=== PATIENT | female | born 1975 | race Caucasian/White ===

== ENCOUNTER → 2020-05-03 | Outpatient (CLI) | payer OTHER ==
[~2020-05-03] MED LIST: NORFLEX 100 MG100 MG PO; PREDNISONE 50 M50 MG PO; Voltaren Gel 1% TOP
== END ==
LOC: MAMO 14:00
DX: Z12.31 Encounter for screening mammogram for malignant neoplasm of breast (principal)
CPT/HCPCS: 77063; 77067

== ENCOUNTER → 2020-06-30 | Outpatient (CLI) | payer OTHER | LOC: RAD 10:02 | DX: R13.10 Dysphagia, unspecified (principal) | CPT/HCPCS: 74220 ==

== ENCOUNTER 2020-12-08 21:01 | Emergency (ER) | payer OTHER ==
[2020-12-08 22:40] LABS: HEMOGLOBIN 12.6 gm/dl (12.3-15.3); RED BLOOD COUNT 4.72 M/UL (4.00-5.10); WHITE BLOOD COUNT 8.2 K/UL (4.5-11.0)
[2020-12-08 23:09] LABS: BUN/CREATININE RATIO 8 (0-10)
[2020-12-09] MEDS ORDERED: ASPIRIN CHEWABL81 MG PO (04:47)
== END 2020-12-09 04:50 | disposition home or self-care (01) ==
LOC: ER1 21:01
PROVIDERS: Family Medicine
DX: R07.9 Chest pain, unspecified (principal); Z87.442 Personal history of urinary calculi; Z90.49 Acquired absence of other specified parts of digestive tract
CPT/HCPCS: 71045; 80053; 82550; 82553; 83690; 83874; 84484; 85025; 93005; 99285